=== PATIENT | female | born 2000 | race Caucasian/White ===

== ENCOUNTER 2025-01-10 10:43 | Emergency (ER) | payer BC, SELFPAY ==
[2025-01-10 10:53] VITALS: BP 149/103
[2025-01-10 11:26] VITALS: BMI 23.7
[2025-01-10 11:29] VITALS: BP 140/104
--- NOTE | 2025-01-10 11:45 | ED.GENMED ---
History of Present Illness
General
Chief Complaint: Visual Problem
Source: patient and family (Father)
Exam Limitations: none
Time Seen by Provider: 01/10/25 11:33
Nursing documentation reviewed up to this point in time: agreed with
History of Present Illness
History of Present Illness:
24-year-old female with history of migraines and IBS presents to the emergency room for evaluation of headache, syncope, blurry vision. Patient reports that she was at work this morning and was under significant stress and started to get a
headache. She says that she decided to go home thinking that this was one of her typical migraines. She says headache was worsening on the ride home and she started to develop blurry vision in her right eye that caused her to tack puller machine to the side
of the road. She says that she had syncopal episode. She was brought to the emergency room by her father to be evaluated. She complains of continued headache and blurry vision in the right eye. She denies any loss of vision. She denies any eye
pain. She denies any focal weakness or numbness in her extremities. She has not had any slurred speech. She denies any trauma to the head. Regarding syncope�she said she had brief loss of consciousness associated with lightheadedness. She
denies any chest pain, palpitations, shortness of breath or any other associated symptoms. While she has had migraines before she denies previous history of visual aura and denies previous episodes of syncope.
Past History
Past History
ED Past Medical History: None
ED Past Surgical History: None
Social History
Tobacco: Non-smoker
Alcohol: None
Drug: None
Personal: Single
Living: with family
Review of Systems
Review of Systems
All Other Systems: ROS reviewed and negative except as documented in HPI and ROS
Constitutional: Denies fever
Respiratory: Denies cough or trouble breathing
Cardiac: Reports syncope; Denies chest pain or palpitations
ABD/GI: Denies abdominal pain, nausea or vomiting
: Denies flank pain
Musculoskeletal: Denies neck pain or back pain
Neurological: Reports dizzy, headache and other (Blurry vision); Denies weakness or numbness
Phy Exam
Physical Exam
Physical Exam:
General: Awake, alert, oriented x3; no acute distress
Head: Normocephalic, atraumatic
Eyes: Conjunctiva normal, EOMI, pupils equal round reactive to light bilaterally, visual silva intact, eye pressures normal (left eye 17,19,18; right eye 19,19,18); visual acuity as documented
Throat: Airway intact, handling secretions
Neck: Trachea midline, supple without meningismus
Lungs: Clear to auscultation bilaterally, no wheezing, rales, rhonchi
Heart: Regular rate and rhythm, no murmurs, gallops, or rubs
Abd: Soft, non distended, nontender
Neuro: Cranial nerves intact, speech fluid no dysarthria or aphasia, motor and sensory intact in all extremities
Extremities: Warm and well-perfused, no edema
Scores
Heart Failure Risk
Heart Failure Risk Score: Not Applicable
Heart Score for Chest Pain Patients
STEMI patient?: Not applicable
Withdrawal Assessment of Alcohol
Withdrawal Assessment Completed?: Not applicable
Course
Orders/Labs/Results
Orders:
Orders
01/10/25 11:43
Electrocardiogram (*1) Urgent
Reason for Study: Syncope
EKG- Treatment ONCE
Test Result ONCE
01/10/25 11:44
CT Head & Neck Angio W/wo IV Urgent
Comment:
Reason For Exam: syncope, headache, blury vision
0.9% Sodium Chloride 1000 ml [Nss] 1,000 ml IV BOLUS
Ketorolac [Toradol] 15 mg IV NOW STA
01/10/25 11:53
Visual Acuity- Treatment ONCE
01/10/25 11:58
Acetaminophen Urgent
Comment: ADD ON
Alcohol Urgent
C-Reactive Protein Urgent
Comment: ADD ON
Complete Blood Count/With Diff Urgent
Comprehensive Metabolic Panel Urgent
Creatine Phosphokinase Urgent
Comment: ADD ON
Erythrocyte Sed Rate Urgent
Comment: ADD ON
HCG, Serum Qualitative Screen Urgent
01/10/25 12:04
EEG Routine Routine
Reason for Exam: ? CPS
Neurology Consult:: DR. RENNER
01/10/25 12:52
Add On- LAB Routine
Comments:: Please add to today's labs or draw as routine
Tests Added?: ESR, CRP
01/10/25 12:53
Add On- LAB Urgent
Tests Added?: CPK
01/10/25 12:59
Add On- LAB Urgent
Tests Added?: tylenol level, ETOH level
01/10/25 13:00
Potassium Chloride Powder [Klor-Con] 20 meq PO NOW STA
Abnormal Lab Results
01/10/25
11:58
WBC 3.7 L 10^3/uL
(4.8-10.8)
RBC 3.57 L 10^6/uL
(4.20-5.40)
Hgb 11.6 L g/dL
(12.0-16.0)
Hct 35.3 L %
(37.0-47.0)
MCH 32.5 H pg
(27.0-31.0)
MCHC 32.9 L g/dL
(33.0-37.0)
RDW 16.8 H %
(11.5-14.5)
Plt Count 125 L 10^3/uL
(130-400)
Absolute Lymphs (auto) 0.6 L 10^3/uL
(1.2-3.4)
Lymphocytes % 16.5 L %
(20.5-51.1)
Monocytes % 14.1 H %
(1.7-9.3)
Sodium 146 H mmol/L
(135-145)
Potassium 3.1 L mmol/L
(3.5-5.1)
BUN 5 L mg/dl
(7-17)
Creatinine 0.5 L mg/dL
(0.6-1.0)
AST 575 H* U/L
(14-36)
ALT 197 H U/L
(0-35)
Alkaline Phosphatase 172 H U/L
(38-126)
Acetaminophen < 10 L ug/ml
(10-30)
01/10/25 11:58
01/10/25 11:58
Vital Signs
Initial and Last Documented VS:
Initial Vital Signs
Temp Pulse Resp BP Pulse Ox
36.9 C 85 16 149/103 97
01/10/25 10:53 01/10/25 10:53 01/10/25 10:53 01/10/25 10:53 01/10/25 10:53
Last Documented Vital Signs
Temp Pulse Resp BP Pulse Ox
36.9 C 83 18 127/89 97
01/10/25 10:53 01/10/25 14:50 01/10/25 14:15 01/10/25 14:00 01/10/25 11:31
MDM/Problems Addressed
Differential Diagnosis Includes:
Headache, blurry vision: Migraine with aura, brain mass, subarachnoid hemorrhage, tension headache, glaucoma
Syncope/loss of consciousness: Vasovagal episode, seizure, dysrhythmia, subarachnoid hemorrhage
MDM/Problems Addressed:
24-year-old female presents for evaluation of blurry vision in the right eye associated with headache and transient loss of consciousness. She does have history of migraines but symptoms atypical today as described above. While she says she passed
out she denies any seizure-like activity, tongue biting, incontinence, postictal period. Currently she continues to complain of headache and blurry vision in the right eye. She is hypertensive but vital signs are otherwise normal. Physical exam
as above. Will plan to place an IV and send labs including a CBC and a CMP, hCG. Will check an EKG. Check CTA head and neck. Plan to treat with fluids and Toradol. At this point I think likely his diagnosis is migraine with aura and associated
vasovagal episode however with constellation of symptoms I do think neurology should be consulted.
Discussed with neurology who evaluated at bedside�agree that this seems more likely to be syncope rather than seizure but will check EEG in an abundance of caution.
Labs reviewed: CBC shows mild pancytopenia. Her CMP shows hypokalemia and transaminitis with AST greater than ALT. Normal bilirubin. Her hCG is negative. Added CPK, Tylenol level, alcohol level. Provide p.o. potassium. Rest of testing pending.
Patient's Tylenol level is negative. Her alcohol level is significantly elevated at 255. Suspect alcohol likely involved in episode today�it seems likely that patient has some dehydration and progression of migraine symptoms related to this. Her
EEG was unremarkable, CT is pending however on my initial review appears to show no significant abnormality. I had a long discussion with the patient about today's results. We talked about her alcohol use�she says that she drinks about 4 nights a
week for 5 drinks at night but that she drank a bit more heavily last night. She claims that she has not had anything to drink today. Certainly clinically she does not appear intoxicated. I explained to her that the fact that she does not appear
clinically intoxicated with an alcohol level of 255 is a sign of significant tolerance. Furthermore explained that with pancytopenia and elevated transaminases these are signs concerning for cumulative effect of significant chronic alcohol intake.
She does that she has not felt that alcohol use has been an issue for her in the past. I urged her to stop drinking alcohol and offered to provide resources to help her with this. She says that she would prefer to research her own resources. We
spoke at length about the dangerous situation for herself and others today where she says she was driving and clearly had an alcohol level that was elevated. She assured me that this would not happen again and that she plans to stop drinking. Will
continue to monitor pending results of CT.
CTA negative for any aneurysm or any other acute pathology. Labs unstable. Plan for discharge. Explained to patient need for close follow-up of her abnormal lab work today. She does not have a primary doctor, I sent her information to PCP
referral line to facilitate establishing care. I explained that we can provide any resources she needs if she feels she needs additional help beyond her earlier discussion. She indicated understanding. All questions answered.
Acute Exacerbation and/or Progression of Chronic Illness:
Acutely hypertensive
Acute Exacerbation and/or Progression of Chronic Illness: HTN
*Radiology
Radiology exam reviewed: radiology read reviewed
*Pulse Oximetry
Patient hypoxic: no
*EKG
Interpreted by ED Provider?: Yes
Heart Rate: 66
Rate: normal
Rhythm: sinus
[place]: normal axis
Interval: normal interval
QRS Pattern: normal QRS
Ischemia: no ischemia
*Critical Care Note
Total Time (30-74mins, 75-104mins- exclusive of procedures): Not Applicable
Data Reviewed
Source: patient and family
Patient Management
Discussion with other providers: Biological Sciences Professor (Discussed with neurology)
ED Attending Note
-
Portions of this chart may have been created with voice recognition software.� Occasional wrong word or��sound alike� substitutions may have occurred due to the inherent limitations of voice recognition software.
Discharge Plan
Departure
Patient Disposition: Home (Routine Discharge)
Date of Disposition: 01/10/25
Time of Disposition: 15:19
Patient with high blood pressure during this ER visit?: Yes
Discharge Problem:
Migraine, Pancytopenia, Abnormal LFTs
Instructions: Migraines (DC)
Prescriptions:
No Action
No Current Medications
0
Referrals:
NONE,* [Family Provider] -
Activity Restrictions/Additional Instructions:
Thank you for visiting the Emergency Department at [facility].
1. Please schedule a follow up appointment as directed. Call first thing tomorrow morning to make an appointment.
2. If indicated, please take your medications as instructed and indicated on discharge paperwork.
3. If any of your symptoms do not improve, or persist, or become more severe within 6-12 hours, please return to the emergency department for further care.
4. Please return to the emergency department if you develop a headache, neck pain/stiffness, fever greater than 100.4F, chest pain, shortness of breath, persistent nausea, vomiting, slurred speech, difficulty walking, numbness/tingling, weakness,
signs of infection or any other symptoms that are worrisome to you.
Please call [phone] if you have any questions.
Interventions
Interventions:
*Risk Screen - Suicide Last Done: 01/10/25 10:56
*General Assessment Last Done: 01/10/25 10:56
*Neglect/Abuse Screening Last Done: 01/10/25 11:26
*ED- Fall Risk Assessment Last Done: 01/10/25 11:26
*ED COVID-19 Vaccine History Last Done: 01/10/25 11:26
ED- Neurological Assessment Last Done: 01/10/25 11:33
ED-EENT Assessment Last Done: 01/10/25 11:33
Discharge Date and Time
Print Language: SAO TOMEAN
[2025-01-10 12:00] VITALS: BP 132/87
[2025-01-10] MEDS: NSS 1000 IV (12:01)
[2025-01-10 12:24] LABS: % Basophils 1.1 % (0-2); % Immature Granulocytes 0.3 % (0-0.5); % Lymphocytes 16.5 % (20.5-51.1); % Monocytes 14.1 % (1.7-9.3); Absolute Lymphocytes 0.6 10^3/uL (1.2-3.4); Absolute Monocytes 0.5 10^3/uL (0.1-0.6); Absolute Neutrophils 2.5 10^3/uL (1.4-6.5); Hematocrit 35.3 % (37.0-47.0); Hemoglobin 11.6 g/dL (12.0-16.0); Mean Corp Hgb Conc. 32.9 g/dL (33.0-37.0); Mean Corpuscular Hgb 32.5 pg (27.0-31.0); Mean Corpuscular Volume 98.9 fL (81.0-99.0); Nucleated Red Blood Cells % 0 %; Platelet Count 125 10^3/uL (130-400); Red Blood Cell Count 3.57 10^6/uL (4.20-5.40); Red Cell Dist. Width 16.8 % (11.5-14.5); White Blood Cell Count 3.7 10^3/uL (4.8-10.8)
[2025-01-10 12:39] LABS: HCG, Serum Qualitative Screen Negative
[2025-01-10] MEDS: TORADOL 15 MG IV (12:43)
--- NOTE | 2025-01-10 12:52 | CON.NEURO ---
Neuro Assessment/Plan
Assessment
migraine with new visual symptoms, which is most likely new migraine aura; however with right temporal artery tenderness, concern for temporal arteritis, other vasculitis, agree CTA head/neck, check ESR, CRP rule out temporal arteritis
brief loss of consciousness, history most consistent with vasovagal syncope, seizure less likely, check EEG
Consultation
Order
Date of Consultation: 01/10/25
Requesting Provider: Dudley Pires Jr
Reason for Consult: headache, blurry vision, LOC
Subjective/Objective
Subjective Data
Date of Service: January 10, 2025
from ED notes:
24-year-old female with history of migraines and IBS presents to the emergency room for evaluation of headache, syncope, blurry vision. Patient reports that she was at work this morning and was under significant stress and started to get a
headache. She says that she decided to go home thinking that this was one of her typical migraines. She says headache was worsening on the ride home and she started to develop blurry vision in her right eye that caused her to bone char puller to the side
of the road. She says that she had syncopal episode. She was brought to the emergency room by her father to be evaluated. She complains of continued headache and blurry vision in the right eye. She denies any loss of vision. She denies any eye
pain. She denies any focal weakness or numbness in her extremities. She has not had any slurred speech. She denies any trauma to the head. Regarding syncope�she said she had brief loss of consciousness associated with lightheadedness. She
denies any chest pain, palpitations, shortness of breath or any other associated symptoms. While she has had migraines before she denies previous history of visual aura and denies previous episodes of syncope.
Patient tells me it began with her usual migraine which is right temporal throbbing, photophobia, happens every several months. right eye blurry vision is a new symptom for her. She lost consciousness for ~1 second, no post ictal confusion, no other
aura symptoms. Now having tenderness right lutheran; the migraine is better
Objective Data
Vital Signs
Temp Pulse Resp BP Pulse Ox
36.9 C 65 16 132/87 97
01/10/25 10:53 01/10/25 12:00 01/10/25 12:00 01/10/25 12:00 01/10/25 11:31
Lab Results
01/10/25 11:58
Patient Allergies
amoxicillin [From Amoxil] Allergy (Verified 01/10/25 10:55)
Unknown
Physical Exam
-
AAOx3, speech clear, language intact
VFF, EOMI, face symmetric
full strength b/l UE/LE
sensation intact to touch
tender right temporal artery
neck with palpated muscle spasms, nontender
Medications
-
Home Medications
�Medication �Instructions �Recorded
No Meds [No Current Medications] 03/02/19
[2025-01-10 12:53] LABS: ALT (SGPT) 197 U/L (0-35); AST (SGOT) 575 U/L (14-36); Albumin 4.3 g/dl (3.5-5.0); Alkaline Phosphatase 172 U/L (38-126); Blood Urea Nitrogen 5 mg/dl (7-17); Calcium 8.8 mg/dl (8.4-10.2); Carbon Dioxide 26 mmol/L (22-30); Chloride 107 mmol/L (98-107); Estimated Creatinine Clearance > 125 ml/min; Glucose 86 mg/dl (70-99); Potassium 3.1 mmol/L (3.5-5.1); Sodium 146 mmol/L (135-145); Total Bilirubin 1.2 mg/dl (0.2-1.3); Total Protein 7.8 g/dl (6.3-8.2); eGFR > 60.00
[2025-01-10 13:03] VITALS: BP 125/88
[2025-01-10 13:18] LABS: Acetaminophen < 10 ug/ml (10-30); Alcohol 255 mg/dl; Creatine Phosphokinase 115 U/L (30-135)
[2025-01-10 13:31] LABS: C-Reactive Protein < 5.00 mg/L (0.0-10.00)
--- NOTE | 2025-01-10 13:40 | EEG.RPT ---
Electroencephalogram Report
Recording
Date of EE01/10/25
Type of EEG: Routine
Length of EEG recordin mins
Done with Video Recording: Yes
Patient Status: Emergency Room
Recording Conditions: Awake, Drowsy and Asleep
Hyperventilation Performed: No
Photic Stimulation Performed: Yes
Report
Clinical Background:�24 year old woman with headache, blurry vision, transient loss of consciousness
Introduction: A routine bedside EEG was done using [employer] 10-20 electrode placement protocol.
Background: In the most alert state, the PDR is 10-11 Hz in frequency with normal amplitude. There is spontaneous variability and reactivity.�
Sleep: Stage I sleep is seen.�
Focal/epileptiform: There were no focal or epileptiform discharges. No clinical or electrographic seizures occurred during this recording.
Photic stimulation: resulted in normal driving response. There was no photo myogenic or photoparoxysmal response.�
Impression: Normal EEG
[2025-01-10] MEDS: KLOR-CON 20 MEQ PO (13:48)
[2025-01-10 13:50] LABS: Erythrocyte Sed Rate 16 mm/hour (0-20)
[2025-01-10 14:00] VITALS: BP 127/89
== END 2025-01-10 15:27 | disposition home or self-care (01) ==
LOC: EMR 10:43
PROVIDERS: EMERGENCY PHYSICIAN Emergency Medicine; OTHER PHYSICIAN Psychiatry & Neurology Clinical Neurophysiology
DX: G43.909 Migraine, unspecified, not intractable, without status migrainosus (principal); D61.818 Other pancytopenia; R79.89 Other specified abnormal findings of blood chemistry; R03.0 Elevated blood-pressure reading, without diagnosis of hypertension
CPT/HCPCS: 99285; 96374; 96361; 70496; 70498; 80053; 80143; 82077; 82550; 84703; 85025; 85652; 86140; 93005; 95816; Q9967

== ENCOUNTER 2025-02-06 17:34 | Inpatient (IN) | payer BC, SELFPAY ==
[2025-02-06] VITALS (7 sets, daily range): BP systolic 111–128; BP diastolic 71–85; BMI 23.0
[2025-02-06 15:10] LABS: HCG, Serum Qualitative Screen Negative
[2025-02-06 15:11] LABS: ALT (SGPT) 49 U/L (0-35); AST (SGOT) 127 U/L (14-36); Albumin 3.5 g/dl (3.5-5.0); Alkaline Phosphatase 117 U/L (38-126); Blood Urea Nitrogen 8 mg/dl (7-17); Calcium 8.3 mg/dl (8.4-10.2); Carbon Dioxide 25 mmol/L (22-30); Chloride 103 mmol/L (98-107); Glucose 134 mg/dl (70-99); Potassium 3.9 mmol/L (3.5-5.1); Sodium 136 mmol/L (135-145); Total Protein 6.3 g/dl (6.3-8.2); eGFR > 60.00
[2025-02-06 15:16] LABS: Troponin I < 0.012 ng/ml
[2025-02-06 15:17] LABS: % Basophils 1.1 % (0-2); % Immature Granulocytes 0.4 % (0-0.5); % Lymphocytes 10.9 % (20.5-51.1); % Monocytes 14.5 % (1.7-9.3); % Neutrophils 73.1 % (42.2-75.2); Absolute Basophils 0.1 10^3/uL (0-0.2); Absolute Lymphocytes 0.5 10^3/uL (1.2-3.4); Absolute Monocytes 0.7 10^3/uL (0.1-0.6); Absolute Neutrophils 3.4 10^3/uL (1.4-6.5); Hematocrit 18.4 % (37.0-47.0); Mean Corp Hgb Conc. 32.6 g/dL (33.0-37.0); Mean Corpuscular Hgb 34.3 pg (27.0-31.0); Mean Corpuscular Volume 105.1 fL (81.0-99.0); Mean Platelet Volume 9.2 fL (7.4-10.4); Nucleated Red Blood Cells % 0 %; Platelet Count 256 10^3/uL (130-400); Red Blood Cell Count 1.75 10^6/uL (4.20-5.40); Red Cell Dist. Width 15.4 % (11.5-14.5)
[2025-02-06 15:20] LABS: White Blood Cell Count 4.7 10^3/uL (4.8-10.8)
--- NOTE | 2025-02-06 15:22 | ED.GENMED ---
History of Present Illness
General
Chief Complaint: Fainting/Passed Out
Source: patient
Exam Limitations: none
Time Seen by Provider: 02/06/25 15:07
History of Present Illness
History of Present Illness:
24yoF with no significant past medical history presenting for evaluation after multiple syncopal episodes. She reports 4 syncopal episodes within the past 24 hours. The first episode occurred yesterday while she was walking to the bathroom. The
second episode occurred today while in the shower. She then had 2 episodes while she was sitting on her bed. Patient reports feeling very fatigued over the past few days and her migraines are worsening. She has been having heavy vaginal bleeding
for the past 3 months. She thought she was having a miscarriage but bleeding never stopped. The bleeding is some point where she has to wear a tampon, pad, and depends. She reports changing tampons every hour.
Past History
Past History
ED Past Medical History: None
ED Past Surgical History: None
Social History
Tobacco: Non-smoker
Alcohol: None
Drug: None
Personal: Single
Living: with family
Phy Exam
General Physical Exam
General Presentation: no apparent distress
General Skin: warm, dry and pale
General Habitus: normal
General Mental: alert and anxious
ENT Exam
ENT Exam: normocephalic
Cardiovascular Exam
Cardiovascular Exam: no murmur and tachycardia
Pulmonary Exam
Pulmonary Exam: lungs clear, no respiratory distress, no crackles and no wheezing
Gastrointestinal Exam
Gastrointestinal Exam: non tender, soft and non distended
Neurological Exam
Neurological Exam: alert
[place] Coma Scale
Eye Opening: Spontaneous
Verbal Response: Oriented
Motor Response: Obeys Commands
GCS Total Score: 15
Skin Exam
Skin Exam: warm/dry and pallor
Psychiatric Exam
Psychiatric Exam: normal mood/affect
Course
Orders/Labs/Results
Orders:
Orders
02/06/25 Breakfast
Regular
At Your Request: Limited, [employer] Required
Does patient need a safe tray?: No
02/06/25 14:35
Electrocardiogram (*1) Urgent
Reason for Study: Chest Pain
Cardiac Monitoring- Treatment ONCE
EKG- Treatment ONCE
IV Insert/Care/Rem.- Treatment PRN
Test Result ONCE
O2 Therapy [RESP] Urgent
Titrate/Wean O2 to maintain O2 sat greater than (%): 90
Special Instructions: Maintain sats >/=90%
Pulse Ox/spot Check [RESP] Urgent
Quantity: 1
Special Instructions: ON ROOM AIR
02/06/25 14:41
Alcohol Urgent
Complete Blood Count/With Diff Urgent
Comprehensive Metabolic Panel Urgent
Ferritin Urgent
Comment: ADD ON
Folate Urgent
Comment: ADD ON
HCG, Serum Qualitative Screen Urgent
Comment: Notify provider if positive test present
Iron Urgent
Comment: ADD ON
Total Iron Binding Urgent
Comment: ADD ON
Troponin I Urgent
Vitamin B12 Urgent
Comment: ADD ON
02/06/25 15:26
Add On- LAB Urgent
Tests Added?: etoh
02/06/25 15:36
Blood Bank Products [* Blood Bank Products] Urgent
Blood Bank Products: *Packed RBC Leuko(PRBC's)
Quantity: 1
Transfuse Today: Yes
Reason: Anemia
Pelvis & Transvaginal US [US Pelvis W Transvag Combined] Urgent
Comment:
Reason For Exam: vaginal bleeding
02/06/25 15:45
Type+Screen Urgent
02/06/25 16:40
Add On- LAB Stat
Tests Added?: iron, b12, ferritin, folate, TIBC
Admit/Transfer Patient As Directed
Co-Sign Provider:
Level of Care: Inpatient admission
Assign to:: Telemetry
Physician / Group: robyn
Diagnosis: acute blood loss anemia
Reason for Telemetry: Other
Other Reason for Telemetry: tachycardia
Date to Stop Telemetry: 02/08/25
Time to Stop Telemetry: 11:00
Reason for Hospitalization: acute blood loss anemia
Expected length of stay greater than two midnights?: Yes
ELOS- Estimated Length of Stay in days: 3
I certify the patient meets the requirements for IP care: Yes
PRN Pain Medication Management As Directed
May give lesser potent ordered pain med per pt: Yes
preference::
Protocol:: Medication orders for pain may be administered in a
manner that supports deferring to patient preference
when the pt is:
- Requesting an ordered lesser potent pain medication.
Least to most potent pain medications are defined
as: acetaminophen < NSAID < tramadol < opioids
(morphine, oxycodone, hydromorphone).
- Requesting a lesser dose of the same medication IF
ORDERED.
- Requesting a less intrusive route of administration
if both routes are prescribed by the provider (PO <
IV).
02/06/25 16:41
Code Status As Directed
Resuscitation Status: Full Code
02/06/25 16:53
ABO2 Urgent
BBK Wristband Number:
Associate notified that ABO2 has been ordered: [id number]
Date: 02/06/25
Time: 16:22
Computer Programmer Chief ID: [id number]
02/06/25 16:57
DESKTOP MANAGER CONSULT Urgent
Consulting Provider: Chel Olivier
Was physician already notified: Yes
02/06/25 18:12
Acetaminophen [Tylenol] 650 mg PO Q4HPRN PRN
Bisacodyl [Dulcolax] 10 mg RECTAL [id number] PRN
Docusate W/Senna [Senokot-S] 1 tablet PO BIDPRN PRN
Polyethylene Glycol Powder [Miralax] 17 grams PO DAILYPRN PRN
02/06/25 18:12
Activity As Directed
Activity Level: As Tolerated
Pneumatic Compression Sleeves As Directed
Type: Knee high
Vital Signs As Directed
Frequency: Per unit guidelines
DX Deep Vein Thrombosis Video Routine
02/07/25 06:00
Complete Blood Count/No Diff IN AM
LFT [Wvazv-Agru-Beziwvo] IN AM
02/07/25 08:00
Ferrous Sulfate [Feosol] 325 mg PO DAILY
02/08/25 06:00
Complete Blood Count/No Diff IN AM
LFT [Axdjz-Mqsh-Sevticx] IN AM
02/08/25 11:00
DC Protocol for Telemetry ONCE
02/09/25 06:00
Complete Blood Count/No Diff IN AM
LFT [Kzonr-Ivmu-Jehkyik] IN AM
02/10/25 06:00
Complete Blood Count/No Diff IN AM
Abnormal Lab Results
02/06/25 02/06/25
14:41 15:45
WBC 4.7 L 10^3/uL
(4.8-10.8)
RBC 1.75 L 10^6/uL
(4.20-5.40)
Hgb 6.0 L* g/dL
(12.0-16.0)
Hct 18.4 L* %
(37.0-47.0)
MCV 105.1 H fL
(81.0-99.0)
MCH 34.3 H pg
(27.0-31.0)
MCHC 32.6 L g/dL
(33.0-37.0)
RDW 15.4 H %
(11.5-14.5)
Absolute Lymphs (auto) 0.5 L 10^3/uL
(1.2-3.4)
Absolute Monos (auto) 0.7 H 10^3/uL
(0.1-0.6)
Lymphocytes % 10.9 L %
(20.5-51.1)
Monocytes % 14.5 H %
(1.7-9.3)
Creatinine 0.5 L mg/dL
(0.6-1.0)
Glucose 134 H mg/dl
(70-99)
Calcium 8.3 L mg/dl
(8.4-10.2)
Iron 23 L ug/dl
(37-170)
% Saturation 6 L %
(20-50)
AST 127 H U/L
(14-36)
ALT 49 H U/L
(0-35)
Vitamin B12 > 1000 H pg/ml
(239-931)
Crossmatch IS Only See Detail
02/06/25 14:41
02/06/25 14:41
Vital Signs
Initial and Last Documented VS:
Initial Vital Signs
Temp Pulse Resp BP Pulse Ox
99.9 F 118 18 118/74 97
02/06/25 14:32 02/06/25 14:32 02/06/25 14:32 02/06/25 14:32 02/06/25 14:32
Last Documented Vital Signs
Temp Pulse Resp BP Pulse Ox
100.2 F 111 18 123/85 100
02/06/25 18:48 02/06/25 18:48 02/06/25 18:48 02/06/25 18:48 02/06/25 18:15
MDM/Problems Addressed
Differential Diagnosis Includes:
24yoF here after multiple syncopal episodes in the past 24 hours. C/o heavy vaginal bleeding x 3 months. Changing tampons every hour. HR 118. BP stable. She is pale but awake and alert. Differential diagnosis includes but is not limited to:
Symptomatic anemia, orthostatic hypotension, vasovagal episodes, less likely cardiogenic
Labs obtained in triage. Hemoglobin is 6.0, down from 11.6 last month. EKG shows normal sinus rhythm without ischemic changes and troponin within normal limits. hCG negative. Pelvic ultrasound ordered. Consent obtained and 1 unit PRBCs ordered
for transfusion. Patient admitted for further management.
*Pulse Oximetry
SaO2: 97
Oxygen Mode of Delivery: Room air
*EKG
Interpreted by ED Provider?: Yes
EKG Intrepretation Date: 02/06/25
Heart Rate: 99
Rate: normal
Rhythm: sinus
[place]: normal axis
Interval: normal interval
QRS Pattern: normal QRS
Ischemia: no ischemia
*Critical Care Note
Total Time (30-74mins, 75-104mins- exclusive of procedures): Not Applicable
ED Attending Note
-
Portions of this chart may have been created with voice recognition software.� Occasional wrong word or��sound alike� substitutions may have occurred due to the inherent limitations of voice recognition software.
Discharge Plan
Departure
Patient Disposition: Admit
Date of Disposition: 02/06/25
Time of Disposition: 16:31
Presentation/result/management discussed w/ accepting MD/DO: Hospitalist
Discharge Problem:
Syncope, Acute blood loss anemia
Interventions
Interventions:
*Risk Screen - Suicide Last Done: 02/06/25 14:32
*General Assessment Last Done: 02/06/25 18:08
*Neglect/Abuse Screening Last Done: 02/06/25 14:32
*ED- Fall Risk Assessment Last Done: 02/06/25 18:08
*ED COVID-19 Vaccine History Last Done: 02/06/25 18:08
*Nursing Disposition Last Done: 02/06/25 18:08
ED- Cardiac Assessment Last Done: 02/06/25 17:50
ED- Neurological Assessment Last Done: 02/06/25 17:50
Discharge Date and Time
Discharge Date/Time: 02/06/25 18:09
[2025-02-06 15:51] LABS: Alcohol None Detected
--- NOTE | 2025-02-06 16:34 | HPS.HSE ---
Family Physician
-
Family Physician: NOT KNOW UNKNOWN - PT DOES
Chief Complaint
-
vaginal bleeding
History of Present Illness
24yoF with past medical history for IBS, migraines presenting for evaluation after multiple syncopal episodes. She reports 4 syncopal episodes within the past 24 hours. The first episode occurred yesterday while she was walking to the bathroom.
The second episode occurred today while in the shower. She then had 2 episodes while she was sitting on her bed. Patient reports feeling very fatigued over the past few days and her migraines are worsening. She has been having heavy vaginal
bleeding for the past 3 months. She thought she was having a miscarriage but bleeding never stopped. stated some lower abdominal cramps. she is seeing blood clots. denied chest pain, sob.denied diarrhea, constipation. denied dysuria or hematuria.
upon arrival ntoed to have hgb of 6, transfusing with one unit. admittng for further managment.
Medical History
Past Medical History
Past Medical History: Reports Other
Additional Past Medical History:
IBS
migraines
Past Surgical History: Reports Other
Additional Past Surgical History:
[place] teeth removal
Social History
Tobacco: Smoker (1-2 cigrettes daily)
Alcohol: Occasional (2-3 beers couple times a week )
Drug: None
Family History
Family History: Not pertinent
Allergies / Home Medications
Allergies reflects when Allergies were last updated in [facility].
Home Medications with original date entered in [facility]
Allergy/Medication List:
Allergies
Allergy/AdvReac Type Severity Reaction Status Date / Time
amoxicillin (From Amoxil) Allergy Unknown Verified 02/06/25 14:32
Home Medications
acetaminophen 325 mg tablet (Tylenol) 975 mg PO DAILY 02/06/25
ferrous sulfate 325 mg (65 mg iron) tablet 325 mg PO DAILY 02/06/25
potassium 99 mg tablet 99 mg PO DAILY 02/06/25
Review of Systems
-
Constitutional: Reports No Symptoms
EENT: Reports No Symptoms
Respiratory: Reports No Symptoms
Cardiac: Reports No Symptoms
Abdomen/GI: Reports No Symptoms
: Reports No Symptoms
Musculoskeletal: Reports No Symptoms
Skin: Reports No Symptoms
Neurological: Reports Dizzy and Headache
Endocrine: Reports No Symptoms
Hematologic/Lymphatic: Reports No Symptoms
Psych: Reports No Symptoms
Physical Exam
Vital Signs
Vital Signs
Temp Pulse Resp BP Pulse Ox
99.9 F 118 18 118/74 97
02/06/25 14:32 02/06/25 14:32 02/06/25 14:32 02/06/25 14:32 02/06/25 15:22
Physical Exam
General: Well Developed, Well Nourished and No Apparent Distress
HEENT: NormoCephalic, Moist mucous membranes and Atraumatic
Respiratory: Clear
Cardiac: S1/S2 and Regular Rhythm; No Murmur or Rub
GI: Soft, Non Tender, Non Distended and Normal Bowel Sounds; No Organomegaly
Rectal: Deferred by Provider
Musculoskeletal: No Clubbing, No Cyanosis and No Edema
Skin: No Rash
Neuro: AO x 3 and Nonfocal/grossly intact
Psych: Calm
Laboratory Results
-
02/06/25 14:41
02/06/25 14:41
Laboratory Results
Total Bilirubin 1.0 mg/dl (0.2-1.3) 02/06/25 14:41
AST 127 U/L (14-36) H 02/06/25 14:41
ALT 49 U/L (0-35) H 02/06/25 14:41
Alkaline Phosphatase 117 U/L (38-126) 02/06/25 14:41
Troponin I < 0.012 ng/ml 02/06/25 14:41
Data Reviewed
-
Lab Data: Labs Reviewed by me
Impression/Plan
-
# Syncopal episode likely from acute blood loss anemia secondary to heavy vaginal bleeding
- Hemoglobin 6.0
- hCG negative
- 1 unit PRBCs in the ER
- Pelvic ultrasound pending
-vice president mission integration consulted
# Tachycardia likely from acute blood loss anemia
- Will transfuse with PRBCs
- Continue to monitor heart rate
# Transaminitis likely from alcohol use
- AST 127 ALT 49 trending down
-ctm
#DVT prophylaxis
-scd
#CODE status
-full code
--- NOTE | 2025-02-06 16:53 | W.PN.UPDATE ---
Addendum entered and electronically signed by Rj Chowdhury MD 02/06/25 21:24:
Patient was evaluated by gynecology and patient refused gynecological examination. Checking PT/INR to rule out coagulopathy from underlying liver disease which could also explain macrocytic anemia.
Original Note:
Update Note
Progress Note Update
This is an addendum to to the H&P written by Emily 02/06/2025. �Patient seen and examined independently with GROUND WATER TECHNICIAN.
24-year-old female past medical history of migraines, IBS, alcohol use disorder, presenting with multiple syncopal episodes. �For syncopal episodes in the past day. �She has been having heavy vaginal bleeding for past 3 months. Not drinking
significant alcohol.�
Vital signs show tachycardia. �EKG shows sinus rhythm.
Labs show hemoglobin of 6, macrocytic anemia. �Mild transaminitis improved from previously when it was attributed to alcohol use. �Alcohol level negative. �hCG negative.
Patient with syncopal episodes secondary to acute blood loss anemia from menorrhagia. �Patient with also underlying leukopenia likely from regular alcohol use. �Macrocytic anemia possibly from alcohol use.�
1 unit of blood transfusion. �Pelvic ultrasound pending. �PRIMARY CARE PHYSICIAN consulted.
Check iron studies, B12 and folate.
[2025-02-06 16:56] LABS: Iron 23 ug/dl (37-170)
[2025-02-06 17:05] LABS: Percent Saturation 6 % (20-50); Total Iron Binding Capacity 359 ug/dl (265-497)
[2025-02-06 17:39] LABS: Ferritin 43.3 ng/ml (6.24-137)
[2025-02-06 18:10] LABS: Folate 16.9 ng/ml (2.76-20); Vitamin B12 > 1000 pg/ml (239-931)
[2025-02-06] MEDS: TYLENOL 650 MG PO (19:09)
--- NOTE | 2025-02-06 22:47 | CON.MD ---
Consultation - Medical
-
24 yo female who reports ongoing abnormal vaginal bleeding (current menses) was admitted due to syncopal episodes. Found to have hgb 6.0 and was admitted for blood transfusion.
Pt reported had regular period in past but has been having irregular bleeding ranging from light to moderate flow for the past 6 months. She changes her pad every 1-2 hrs but admits she changes it even if not stained much because she wants a fresh
pad. She denies pelvic pain. Had syncopal episodes at home. States feeling better now that is getting transfusion. Denies any dizziness or lightheadedness in hospital. Denies N/V. Of note, patient had admission to the hospital December 2024 during which
time her hemoglobin was 11.6. LFTs were elevated and she had a positive alcohol level.
PMH: migraines, abnormal uterine bleeding.
PSH: [place] teeth; D&E for second trimester demise approx 5 months
Allergy: Amoxicillin-rash
Medications: Vitamin D, multivitamin, iron
Social history: Single. Smokes tobacco approximately 1 cigarette daily for the past 4 years. Denies vaping. Reports alcohol approximately 1-3 beers approx 3x per wk.
Family history mother-hypertension
Contraception: condoms
OBHx: reports first trimester miscarriage and second trimester demise approx 5 months. Had D&E.
Review of systems does not add
Physical exam:
General: Young well-appearing female in no acute distress
Patient is refusing any type of exam including pelvic exam.
WBC 4.7
Hgb 6.0
Hct 18.4 plt 256
MCV 105
B12 normal
Folate >1000 (high)
HCG negative.
AST 127 (down from 575 on 01/10/2025)
ALT 49 (down from 197 on 01/10/2025)
Pelvic ultrasound: Uterus normal in size contour and echogenicity measuring 4.8 x 2.6 x 3.2 cm. No significant thickening of the endometrial cavity echocomplex which measures 4 mm. There is a fibroid measuring 1.6 x 1.2 x 1.5 cm in the anterior
right uterus. It abuts the endometrial stripe. This may be intramural or submucosal. No abnormal solid or complex adnexal masses. Right ovary measures 3.8 x 2.2 x 2.0 cm. It is normal in configuration and echogenicity and has normal blood flow.
Left ovary measures 3.8 x 2.0 x 1.9 cm. It contains a predominantly anechoic mass with internal echoes probable benign hemorrhagic cyst. It measures 1.6 x 1.4 x 1.2 cm. There is no free fluid in the pelvis. Note: Probable benign hemorrhagic
left ovarian cyst. Repeat ultrasound recommended in 6 weeks.
Impression:
1. Abnormal vaginal bleeding:
Various etiologies are possible:anovulatory bleeding, uterine fibroid, endometrial polyp, liver disease/coagulopathy, thyroid dysfunction.
2. Iron deficiency anemia related to blood loss. She reported abnormal bleeding to me for over 6 months, yet her hemoglobin was 11.6 on 01/10/2025. Is very difficult to ascertain the amount of bleeding she has been having. She reports changing
pad very frequently with only minimal amount of spotting. She changes her pads every 1-2 hours but they are not saturated.
3. Fibroid uterus.
4. Transaminitis- may be related to alcohol intake.
Plan:
1. Check TSH to rule out htyroid dysfunction, PT/INR to eval for possible coagulopathy.
2. The patient is refusing examination so it is very difficult to assess her bleeding. At the time of seeing her she is receiving blood transfusion. She expressed that she is anxious to go home.
I explained that is difficult to help her if we are unable to make an accurate assessment of what is going on. Would recommend serial H&H. If hemoglobin improves and stabilizes she could follow-up as an outpatient. Patient sees Dr. Parra as her
PCP. She denies having a differential repairer. I expressed the importance of seeing a differential repairer to establish care and additional workup for her problem. I explained it is not normal nor safe for her to continue to have abnormal bleeding. Without
identifying and addressing the cause, I explained that she is at increased risk for recurrent anemia. Counseled regarding fibroid uterus. There may be other etiologies for bleeding and it cannot be assume that the bleeding is coming from this
fibroid alone. To consider sonohysterogram to evaluate for intracavitary/submucosal fibroid versus polyp. This could be performed as an outpatient if her hemoglobin stabilizes. Hyperplasia felt less likely given age, normal BMI.
3. Other causes for bleeding should be considered, although it seems that INNER DIAMETER GRINDER TOOL source is most likely. It cannot be corroborated on exam since patient is refusing examination.
4. Regarding elevated liver functions, and concern from previous visits about alcohol intake I would be hesitant to use estrogen containing medications to control her bleeding. I explained to her that she needs to follow-up with her primary
regarding her elevated liver enzymes. She was counseled about avoiding alcohol.
I contacted Dr. Rj Chowdhury, hospitalist, regarding checking labs. Reviewed difficulty providing advice since patient is refusing examination.
Time 30 min
Consultation
-
Date/Time Consultation Requested: 02/06/25 16:30
Date/Time Consultation Performed: 02/06/25 18:30
Requesting Provider: dr chowdhury
Performing Provider: Chel Olivier DO
Reason for Consultation: anemia abnormal bleeding
--- NOTE | 2025-02-06 23:13 | PTCARENOTE ---
received patient in bed upon change of shift. AAOx3. No signs of distress noted. 1 unit of Blood infusing with no adverse reactions noted. Call ty within reach. Oriented to unit.
[2025-02-07] VITALS (8 sets, daily range): BP systolic 105–130; BP diastolic 71–90
[2025-02-07] LABS: Hematocrit 19.6 % (37.0-47.0); Hemoglobin 6.3 g/dL (12.0-16.0)
[2025-02-07 00:02] LABS: INR 1.16; PT 15.3 Sec (11.4-14.6)
[2025-02-07 07:46] LABS: Hematocrit 22.8 % (37.0-47.0); Hemoglobin 7.5 g/dL (12.0-16.0); Mean Corp Hgb Conc. 32.9 g/dL (33.0-37.0); Mean Corpuscular Hgb 32.8 pg (27.0-31.0); Mean Corpuscular Volume 99.6 fL (81.0-99.0); Mean Platelet Volume 9.4 fL (7.4-10.4); Platelet Count 205 10^3/uL (130-400); Red Blood Cell Count 2.29 10^6/uL (4.20-5.40); Red Cell Dist. Width 16.6 % (11.5-14.5); White Blood Cell Count 3.1 10^3/uL (4.8-10.8)
[2025-02-07 08:09] LABS: ALT (SGPT) 38 U/L (0-35); AST (SGOT) 84 U/L (14-36); Albumin 2.9 g/dl (3.5-5.0); Alkaline Phosphatase 95 U/L (38-126); Direct Bilirubin 0.5 mg/dl (0.0-0.4); Total Bilirubin 1.1 mg/dl (0.2-1.3); Total Protein 5.5 g/dl (6.3-8.2)
[2025-02-07] MEDS: FEOSOL 325 MG PO (08:24)
--- NOTE | 2025-02-07 10:28 | CM ---
Patient seen bedside w/ boyfriend, initial assessment completed. Patient is a 24yoF with past medical history for IBS, migraines presenting for evaluation after multiple syncopal episodes and vaginal bleeding.
Patient resides w/ her mother and father in a 3STH, 1 step to enter. Patient independent in all areas. No therapy hx.
Address, points of contact and insurance verified
PCP: Ciaran Parra
Pharmacy: [facility] [place]
Plan: Home, no needs. Likely today
--- NOTE | 2025-02-07 11:39 | W.PN.HOSP.TC ---
Today's Communication/Plan
-
dc to home after 2pm HH reviewed after 3rd unit PRBC
OP f/u
Assessment / Plan
Assessment / Plan
Assessment:
Syncopal episode likely from acute blood loss anemia secondary to heavy vaginal bleeding
- US: Myomatous uterus. Intrauterine versus submucosal
- Hb 6.0 - now receiving 3rd unit and repeat Hb at 2pm - if good response can dc home. Continue oral iron for FE deficiency
- refused pelvic exam by NUCLEAR MEDICINE SUPERVISOR - notified patient to follow up outpatient for hysteroscopy and further workup
- TSH and INR ok
Tachycardia likely from acute blood loss anemia
- resolved with transfusion
Transaminitis likely from alcohol use
- AST 127 ALT 49 trending down
DVT prophylaxis: SCDs
Code: Full
More than 30 minutes spent in discharge including
Final examination of the patient
Summarizing hospital stay
Instructions for continuing care to all relevant caregivers
Preparation of discharge records, prescriptions, and referral forms
Total time spent (in minutes):41
Anticipated Discharge: Today
Subjective/Interval History
-
Date of Service: February 07, 2025
resting comfortably, no complaints
Hb 7.2 - 1 unit further ordered
Objective Data
-
Labs:
Laboratory Results
02/06/25 02/07/25 02/07/25
23:41 06:00 06:59
WBC Cancelled 3.1 L
Hgb 6.3 L* Cancelled 7.5 L
Hct 19.6 L* Cancelled 22.8 L
Plt Count Cancelled 205
PT 15.3 H
INR 1.16
Total Bilirubin Cancelled 1.1
AST Cancelled 84 H
ALT Cancelled 38 H
Alkaline Phosphatase Cancelled 95
02/07/25
16:00
WBC
Hgb Pending
Hct Pending
Plt Count
PT
INR
Total Bilirubin
AST
ALT
Alkaline Phosphatase
Vital Signs:
Vital Signs
Temp Pulse Resp BP Pulse Ox
99 F 88 18 130/90 100
02/07/25 09:26 02/07/25 09:26 02/07/25 09:26 02/07/25 09:26 02/07/25 07:30
I&O
02/06/25 02/07/25 02/08/25
06:59 06:59 06:59
Intake Total 1480 / 1480 0 / 0
Balance 1480 / 1480 0 / 0
Physical Exam
-
General: No Apparent Distress
HEENT: Normocephalic and Atraumatic
Respiratory: Negative Wheezes
Cardiac: Regular Rhythm and S1/S2
GI: Soft and Nontender
Genito-urinary: No Costovertebral Tender
Musculoskeletal: No Edema
Neuro: AO x 3
Psych: Calm
Data Reviewed
-
Total Time Spent with Patient (in minutes): 42
Labs: Labs Reviewed by me
--- NOTE | 2025-02-07 13:35 | PTCARENOTE ---
Received patient from IMU awake and alert, on oxygen at 6 LPM via Nasal Cannula . Pulse ox 94% on 6 LPM . Denies any shortness of breath, is mildly dyspniec on exertion. Able to make needs known . Oriented to unit, call ty in reach.
[2025-02-07 13:55] LABS: Hematocrit 25.7 % (37.0-47.0); Hemoglobin 8.8 g/dL (12.0-16.0)
--- NOTE | 2025-02-07 14:06 | W.PN.OBG.DWH ---
Today's Communication / Plan
-
dc as per hospitalist
recommend mvi, iron supplementation
f/up with computerized mill mill recorder
needs pap, contraception, monitor menses
Assessment/Plan
-
hypotensive episode
profound anemia
aub
myomatous ut
s/p tx 3u prbc
Subjective Data
-
awaiting h/h
Objective Data
-
Laboratory Results
02/07/25 16:00
02/06/25 14:41
Vital Signs
Temp Pulse Resp BP Pulse Ox
99.1 F 88 18 113/85 100
02/07/25 13:30 02/07/25 11:51 02/07/25 11:51 02/07/25 11:51 02/07/25 11:45
--- NOTE | 2025-02-07 15:01 | W.DS.TRANS ---
DC Summary - Telesales Consultant
-
Discharge Instructions:
Discharge Diagnosis/Procedures symptomatic anemia - gynecological origin,
requiring 3 units blood
Diet Regular
Activity As tolerated
Instructions:
Stand-Alone Forms:
Changes to Home Medications: No
Discharge Medications:
DC Medications w/original date entered in [facility]
acetaminophen 325 mg tablet (Tylenol) 975 mg PO DAILY 02/06/25
ferrous sulfate 325 mg (65 mg iron) tablet 325 mg PO DAILY 02/06/25
potassium 99 mg tablet 99 mg PO DAILY 02/06/25
Home Medication Changes
Pending Results: No
Total time spent discharging patient (in min): 41
== END 2025-02-07 14:16 | disposition home or self-care (01) | DRG 760 ==
LOC: 4 WEST ACU 17:34
PROVIDERS: ADMITTING PHYSICIAN Hospitalist; ATTENDING PHYSICIAN Internal Medicine; CONSULT PHYSICIAN Obstetrics & Gynecology; EMERGENCY PHYSICIAN Emergency Medicine; FAMILY PHYSICIAN Family Medicine
PROC: 30233N1 Transfusion of Nonautologous Red Blood Cells into Peripheral Vein, Percutaneous Approach (ICD-10-PCS; 2025-02-06)
DX: D25.9 Leiomyoma of uterus, unspecified (principal); D62 Acute posthemorrhagic anemia; K58.9 Irritable bowel syndrome, unspecified; G43.909 Migraine, unspecified, not intractable, without status migrainosus; F17.210 Nicotine dependence, cigarettes, uncomplicated; Z82.49 Family history of ischemic heart disease and other diseases of the circulatory system
CPT/HCPCS: 76830; 76856; 80053; 80076; 82077; 82607; 82728; 82746; 83540; 83550; 84443; 84484; 84703; 85014; 85018; 85025; 85027; 85610; 86850; 86900; 86901; 86920; 93005; 99285; P9016